=== PATIENT | male | born 1985 | race Caucasian/White ===

== ENCOUNTER → 2018-01-14 | Outpatient (CLI) | payer OTHER ==
[2018-01-14 15:46] LABS: microscopic required? NO
[2018-01-14 15:57] LABS: urine erythrocyte NEGATIVE (NEGATIVE)
[2018-01-14 15:59] LABS: BASOPHIL % 0.7 % (0-2); PLATELET COUNT 232 x10^3mcL (130-400); RED CELL DISTRIBUTION WIDTH 14.5 % (11.5-14.5)
== END | disposition home or self-care (01) ==
LOC: RD 15:22
PROVIDERS: Family Medicine
PROC: B54DZZZ Ultrasonography of Bilateral Lower Extremity Veins (ICD-10-PCS; principal; 2018-01-14)
PROC: B44HZZZ Ultrasonography of Bilateral Lower Extremity Arteries (ICD-10-PCS; 2018-01-14)
DX: M79.659 Pain in unspecified thigh (principal)
CPT/HCPCS: 87491; 87591; Q0092

== ENCOUNTER → 2018-12-01 | Outpatient (CLI) | payer OTHER | END | disposition home or self-care (01) | LOC: RD 11:18 | DX: R06.02 Shortness of breath (principal); M54.2 Cervicalgia; M89.8X1 Other specified disorders of bone, shoulder ==

== ENCOUNTER 2019-10-02 07:32 | Emergency (ER) | payer OTHER ==
[~2019-10-02] VITALS: Ht 175.3 cm; Wt 88.0 kg
[2019-10-02 07:40] VITALS: Ht 175.3 cm; Wt 88.0 kg
[2019-10-02 08:33] LABS: BASOPHIL % 0.6 % (0-2); PLATELET COUNT 240 x10^3mcL (130-400); RED CELL DISTRIBUTION WIDTH 14.1 % (11.5-14.5)
[2019-10-02 08:41] LABS: CALCIUM 9.3 mg/dL (8.5-10.1); CARBON DIOXIDE 29.3 mmol/L (21-32); CHLORIDE SERUM 108 mmol/L (98-107); GFR1 > 60 mL/min; GLUCOSE SERUM 103 mg/dL (74-106); POTASSIUM SERUM 3.9 mmol/L (3.5-5.1); SODIUM SERUM 143 mmol/L (136-145)
[2019-10-02 08:46] LABS: ALBUMIN 3.7 g/dL (3.4-5.0); ALKALINE PHOSPHATASE 60 U/L (46-116); ALT/SGPT 33 U/L (16-63); AST/SGOT 18 U/L (15-37); BILIRUBIN TOTAL 0.53 mg/dL (0.20-1.00); TOTAL PROTEIN, SERUM 7.2 g/dL (6.4-8.2)
[2019-10-02 10:22] VITALS: BP 125/62
== END 2019-10-02 10:22 | disposition home or self-care (01) ==
LOC: ED 07:32
PROVIDERS: Emergency Medicine
DX: M79.604 Pain in right leg (principal); M79.605 Pain in left leg
CPT/HCPCS: 36415; 85378; Q0092